=== PATIENT | male | born 1990 | race African-American/Black ===

== ENCOUNTER 2019-07-10 09:33 | Emergency (ER) | payer OTHER ==
[~2019-07-10] VITALS: Ht 175.3 cm; Wt 86.2 kg
--- NOTE | 2019-07-10 09:48 | NUR ---
ED Nurse Note: Pt walked in from home c/o right hand/wrist pain since yesterday. Pt reports that he was at work when he attempted to prevent a stack of tables from falling on him by using his hands. Pt denies any other injury at this time. Respirations even and unlabored on room air. Vitals stable as documented.
[2019-07-10 09:49] VITALS: BP 146/77
--- NOTE | 2019-07-10 10:05 | NUR ---
ED Nurse Note: xray @ bedside
--- NOTE | 2019-07-10 10:16 | Diagnostic Imaging Report ---
EXAM: XR Right Wrist, 2 Views CLINICAL HISTORY: PAIN TECHNIQUE: Frontal and lateral views of the right wrist. COMPARISON: None FINDINGS: Bones/joints: No displaced fracture or dislocation identified. Joint space is maintained. No bony lesion. Soft tissues: Normal. IMPRESSION: No displaced fracture or dislocation identified.
--- NOTE | 2019-07-10 10:27 | NUR ---
ED Nurse Note: right wrist splint applied
[2019-07-10] MEDS ORDERED: IBUPROFEN600 MG ORAL (10:45)
[2019-07-10 10:50] VITALS: BP 141/78
--- NOTE | 2019-07-10 10:50 | NUR ---
ER DISCHARGE NOTE: Patient is cleared to be discharged per ERMD, pt is aox4, on room air, with stable vital signs as documented. pt was given dc and prescription instructions and was able to verbalize understanding, pt id band removed. Paperwork for injury at work done. pt is able to ambulate with steady gait. pt took all belongings.
--- NOTE | 2019-07-10 11:05 | Emergency Room Report ---
History of Present Illness General Chief Complaint: Upper Extremity Injury Source: Patient Present Illness HPI 28-year-old male presents ED for evaluation of right wrist pain. States that yesterday at work some tables almost fell on him and he prevented with using his hands. States he felt a strain in his right wrist. Pain is dull, 6 out of 10, nonradiating. Worse with flexion of the wrist. Denies snuffbox tenderness. Denies any other injuries. Did not take pain medication prior to arrival. No other aggravating relieving factors. Denies any other associated symptoms Allergies: Coded Allergies: No Known Allergies (Unverified , 07/10/19) Patient History Past Medical History: none Past Surgical History: none Pertinent Family History: none Social History: Denies: smoking, alcohol use, drug use Immunizations: UTD Reviewed Nursing Documentation: PMH: Agreed; PSxH: Agreed Nursing Documentation-PMH Past Medical History: No History, Except For Review of Systems All Other Systems: negative except mentioned in HPI Physical Exam Vital Signs Date Time Temp Pulse Resp B/P (MAP) Pulse Ox O2 Delivery O2 Flow Rate FiO2 07/10/19 09:41 98.8 58 18 146/77 (100) 98 Room Air Sp02 EP Interpretation: reviewed, normal General Appearance: no apparent distress, alert, GCS 15, non-toxic Head: normocephalic Eyes: bilateral eye normal inspection, bilateral eye PERRL ENT: normal ENT inspection Neck: normal inspection Respiratory: normal inspection Cardiovascular #1: normal inspection Gastrointestinal: normal inspection Rectal: deferred Genitourinary: no CVA tenderness Musculoskeletal: normal range of motion, gait/station normal, tender - TTP base R wrist. no snuffbox tenderness Neurologic: alert, motor strength/tone normal, oriented x3, sensory intact, responsive, speech normal Psychiatric: normal inspection Skin: no rash Lymphatic: normal inspection Procedures Splinting Splinting : Consent: Verbal Pre-Made Type: velcro Splint: thumb spica Pre-Proc Neuro Vasc Exam: normal Post-Proc Neuro Vasc Exam: normal Patient Tolerated: Well Complications: None Medical Decision Making Diagnostic Impression: Primary Impression: Thumb sprain Qualified Codes: S63.601A - Unspecified sprain of right thumb, initial encounter ER Course Hospital Course 28-year-old M presents to ED complaining of R thumb pain Differential diagnoses include: Fracture, dislocation, sprain, contusion Clinical course Patient placed on stretcher. After initial history and physical, I ordered xrays R wrist. patient declined pain meds Xrays read shows no acute fracture/dislocation. Discussed findings with patient. Likely sprain. Placed in thumb spica splint. Will discharge to home. Ice, NSAIDs, modified activity. Safe for discharge for close outpatient follow-up. If symptoms not improve I will provide Ortho referrals Diagnosis thumb sprain Stable and discharged to home with prescription for Motrin. apply ice, keep elevated. weight bear as tolerated. Followup with PMD/ortho. Return to ED if symptoms recur or worsen Other X-Ray Diagnostic Results Other X-Ray Diagnostic Results : X-Ray ordered: R wrist # of Views/Limited Vs Complete: 3 View Indication: Pain EP Interpretation: Yes Interpretation: no dislocation, no soft tissue swelling, no fractures Impression: No acute disease Electronically Signed by: Electronically signed by Carroll Rubio MD Last Vital Signs Date Time Temp Pulse Resp B/P (MAP) Pulse Ox O2 Delivery O2 Flow Rate FiO2 07/10/19 10:50 98.5 76 18 141/78 98 Room Air Status: improved Disposition: HOME, SELF-CARE Condition: Stable Scripts Ibuprofen* (MOTRIN*) 600 Mg Tablet 600 MG ORAL Q8H PRN for For Pain, #30 TAB 0 Refills Prov: Carroll Rubio MD 07/10/19 Referrals: NOT CHOSEN [facility]/,REFERRING ([facility] Open 24 hour /7 days a week by Appointment Only [address] [facility] [address] [facility] [id number] Departure Forms: Return to Work Return to Work Date: Jul 13, 2019 Work Restrictions: No Heavy Lifting Patient Instructions: Thumb Sprain Carroll Rubio MD Jul 10, 2019 11:05
== END 2019-07-10 10:50 | disposition home or self-care (01) ==
LOC: EMR 10:00
DX: S63.601A Unspecified sprain of right thumb, initial encounter (principal); X58.XXXA Exposure to other specified factors, initial encounter; Y92.9 Unspecified place or not applicable
CPT/HCPCS: 29125; 99283